=== PATIENT | male | born 1940 | race Caucasian/White ===

== ENCOUNTER 2018-08-09 13:15 | Emergency (ER) | payer OTHER, SELFPAY ==
[2018-08-09 13:21] VITALS: BP 152/79; PULSE 71; RESP 15; TEMP 36.4; O2SAT 97; BMI 29.1
[2018-08-09 13:47] VITALS: BP 140/80; PULSE 62; RESP 19; O2SAT 95
[2018-08-09] MEDS: SODIUM CHLORIDE 0.9% 1,000 ML 150 ML IV (13:52)
[2018-08-09 13:57] LABS: Add Manual Diff / Slide Review NO; Basophils Percent Auto 0.5 % (0-2); Eosinophils Percent Auto 2.8 % (2-4); Hematocrit 51.3 % (41-53); Hemoglobin 17.2 g/dL (13.5-17.5); Lymphocytes Percent Auto 13.5 % (25-40); Mean Corpuscular HGB Conc 33.5 % (30-36); Mean Corpuscular Hemoglobin 29.7 PG (26-34); Mean Corpuscular Volume 88.7 fL (80-100); Neutrophils Absolute Auto 6100 /uL (3000-5900); Neutrophils Percent Auto 73.2 % (50-75); Platelet Count 163 X10^3/uL (150-400); Red Blood Cell Count 5.78 X10^6/uL (4.5-5.9); Red Cell Distribution Width 15.3 % (11.6-14.8); White Blood Cell Count 8.3 X10^3/uL (4.5-11.0)
[2018-08-09 14:03] LABS: Alanine Aminotransferase 33 IU/L (21-72); Albumin 4.4 g/dL (3.5-5.0); Albumin Globulin Ratio 1.5 (1.0-2.8); Alkaline Phosphatase 92 U/L (38-126); Aspartate Aminotransferase 39 IU/L (17-59); BUN Creatinine Ratio 15.8 (6-22); Bilirubin Total 0.7 mg/dL (0.2-1.3); Blood Urea Nitrogen 19 mg/dL (9-20); Calcium 9.7 mg/dL (8.4-10.2); Carbon Dioxide 26 mmol/L (22-32); Chloride 108 mmol/L (98-107); Estimated Glomerular Filt Rate 58.9 mL/min (>60); Globulin 2.9 g/dL (1.7-4.1); Glucose 102 mg/dL (80-110); HEMOLYSIS < 15 (0-50); Lipase 128 U/L (23-300); Sodium 148 mmol/L (137-145); Total Protein 7.3 g/dL (6.3-8.2)
[2018-08-09 14:07] LABS: Prothrombin Time 11.1 SECONDS (10.1-12.7)
[2018-08-09 14:14] LABS: Bacteria Urine Moderate (10-30); Culture Indicated Urine Specimen Cultured; RBC Urine 30-100/HPF (0-5/HPF); WBC Urine 1-5/HPF (0-5/HPF)
[2018-08-09 14:30] VITALS: BP 131/79; PULSE 67; RESP 14; O2SAT 94
--- NOTE | 2018-08-09 14:40 | ED.ABDPAIN ---
HPI - Abdominal Pain General Chief Complaint: Abdominal Pain Stated Complaint: AAA stint 5 years ago, has pain in that area now Time Seen by Provider: 08/09/18 13:40 Source: patient and family Mode of arrival: ambulatory Limitations: no limitations History of Present Illness HPI narrative: This is a 78-year-old male comes to the emergency department with complaint of abdominal pain in the left lower quadrant. Patient states this started about 5:00 a.m. this morning I see some stop point tenderness in the right groin and points to the inguinal area. He states that he took some ibuprofen and that helped although is it starts to wear off and comes back. He states it does sort of seem to be in waves it is not completely constant. He states it does not really seem to be radiating anywhere else. He is not having any testicular pain. He is not having any new back pain although he does have chronic back pain. States that it is his typical back pain. He is not having any flank pain. Patient denies any fevers or chills. Um him and his significant other states that he was sort of flushed earlier when they 1st started his IV. He denies any chest pain or shortness of breath. He has been nauseated but not had any vomiting. He does have a history of AA abdominal aortic aneurysm which was repaired with stent. Patient states that he has also had a history of could be remotely. patient is not having any issues with urination. Related Data Previous Rx's Medication Instructions Recorded tamsulosin [Flomax] 0.4 mg PO DAILY #5 cap 08/09/18 Allergies Allergy/AdvReac Type Severity Reaction Status Date / Time finasteride Allergy Verified 08/09/18 13:21 Review of Systems Review of Systems All systems reviewed & are unremarkable except as noted in HPI and below Constitutional Denies chills, Denies fever(s), Denies lethargy, Denies weakness and Reports other ( flushed) Cardiovascular Denies chest pain, Denies diaphoresis, Denies syncope, Denies irregular heart rhythm, Denies lightheadedness, Denies palpitations, Denies dyspnea, Denies dyspnea on exertion and Denies orthopnea Respiratory Denies cough, Denies dyspnea, Denies dyspnea on exertion and Denies wheezing Gastrointestinal Gastrointestinal: Reports abdominal pain, Reports belching, Denies melena, Denies bloating, Denies change in bowel habits, Denies diarrhea, Reports nausea, Denies vomiting and Denies other ( no masses) Genitourinary Denies hematuria, Denies flank pain, Denies scrotal swelling, Denies testicular pain, Denies urinary frequency, Denies urinary hesitancy, Denies urinary incontinence and Denies urinary urgency Musculoskeletal Reports back pain ( chronic, no new change) Integumentary/Breasts Denies rash Neurologic Denies syncope and Denies weakness Endocrine Denies palpitations Allergic/Immunologic Denies wheezing PFSH Medical History Aortic aneurysm, abdominal (Acute) Surgical History S/P aneurysm repair (Acute) Social History other: Lives in [facility] part-time Smoking Status: Never smoker Exam Narrative Exam Narrative: GENERAL: Alert and oriented x three, well-nourished, well-appearing male in mild distress. HEENT: Head normocephalic, atraumatic, EOMI, pupils reactive, face symmetric, moist mucous membranes NECK: Supple, full range of motion CARDIOVASCULAR: Regular rate and rhythm without murmurs, rubs or gallops. RESPIRATORY: Breath sounds equal bilaterally, no wheezes rales or rhonchi. ABDOMEN: Soft, Tenderness in the left inguinal region. I am unable to palpate any mass or lymphadenopathy. Patient is only mildly tender to palpation. No other abdominal tenderness with palpation in the 4 quadrants. Normoactive bowel sounds all 4 quadrants. No guarding or rebound, rigidity, no mass, No bruit or pulsatile mass. : No CVA tenderness EXTREMITIES: Normal range of motion, no clubbing or edema. Neurovascularly intact. 2+ pulses bilateral lower extremities. NEUROLOGICAL: Cranial nerves II through XII grossly intact. Moving all extremities SKIN: Warm, dry, no petechiae, no rashes or lesions. Initial Vital Signs Initial Vital Signs: Vital Signs Temperature 97.6 F 08/09/18 13:21 Pulse Rate 71 08/09/18 13:21 Respiratory Rate 15 08/09/18 13:21 Blood Pressure 152/79 H 08/09/18 13:21 Pulse Oximetry 97 08/09/18 13:21 Course Orders Ordered: ED Orders 08/09/18 13:30 Complete Blood Count AUTO DIFF Stat Comprehensive Metabolic Panel Stat Lipase Stat Prothrombin Time INR Stat Type and Screen Stat 08/09/18 13:54 Urine Culture Stat Urine Microscopic Stat 08/09/18 14:39 CT angio chest abdomen pelvis Stat Discontinued Medications Sodium Chloride (Normal Saline 0.9%) 1,000 mls @ 150 mls/hr IV CONT LILLI Last Infusion: 08/09/18 17:02 Dose: 0 mls/hr Admin: 08/09/18 13:52 Dose: 150 mls/hr Ibuprofen (Advil) 800 mg PO NOW ONE Stop: 08/09/18 16:44 Tamsulosin HCl (Flomax) 0.4 mg PO NOW ONE Stop: 08/09/18 16:44 Vital Signs - 8 hr 08/09/18 13:21 08/09/18 13:47 08/09/18 14:30 Temperature 97.6 F Pulse Rate 71 62 67 Respiratory Rate 15 19 14 Blood Pressure 152/79 H Blood Pressure [Right Arm] 140/80 131/79 Pulse Oximetry 97 95 94 08/09/18 16:00 08/09/18 17:02 Temperature Pulse Rate 77 73 Respiratory Rate 18 Blood Pressure 153/83 H Blood Pressure [Right Arm] 153/83 H Pulse Oximetry 95 99 MDM - Abdominal Pain Lab Data Attestation: I reviewed the patient's lab results. Result diagrams: 08/09/18 13:30 08/09/18 13:30 Lab Results 08/09/18 08/09/18 08/09/18 Range/Units 13:30 13:30 13:30 WBC 8.3 (4.5-11.0) X10^3/uL RBC 5.78 (4.5-5.9) X10^6/uL Hgb 17.2 (13.5-17.5) g/dL Hct 51.3 (41-53) % MCV 88.7 (80-100) fL MCH 29.7 (26-34) PG MCHC 33.5 (30-36) % RDW 15.3 H (11.6-14.8) % Plt Count 163 (150-400) X10^3/uL Neut % (Auto) 73.2 (50-75) % Lymph % (Auto) 13.5 L (25-40) % [place] % (Auto) 10.0 (3-14) % Eos % (Auto) 2.8 (2-4) % Baso % (Auto) 0.5 (0-2) % Neut # (Auto) 6100 H (0436-2945) /uL PT 11.1 (10.1-12.7) SECONDS INR 1.0 (0.9-1.3) Sodium 148 H (137-145) mmol/L Potassium 4.0 (3.4-5.1) mmol/L Chloride 108 H (98-107) mmol/L Carbon Dioxide 26 (22-32) mmol/L BUN 19 (9-20) mg/dL Creatinine 1.20 (0.66-1.25) mg/dL Estimated GFR 58.9 L (>60) mL/min BUN/Creatinine Ratio 15.8 (6-22) Glucose 102 (80-110) mg/dL Calcium 9.7 (8.4-10.2) mg/dL Total Bilirubin 0.7 (0.2-1.3) mg/dL AST 39 (17-59) IU/L ALT 33 (21-72) IU/L Alkaline Phosphatase 92 (38-126) U/L Total Protein 7.3 (6.3-8.2) g/dL Albumin 4.4 (3.5-5.0) g/dL Globulin 2.9 (1.7-4.1) g/dL Albumin/Globulin Ratio 1.5 (1.0-2.8) Lipase 128 (23-300) U/L Urine RBC (0-5/HPF) Urine WBC (0-5/HPF) Urine Bacteria (None) Ur Culture Indicated? Micro UA Comment Blood Type Antibody Screen 08/09/18 08/09/18 Range/Units 13:30 13:54 WBC (4.5-11.0) X10^3/uL RBC (4.5-5.9) X10^6/uL Hgb (13.5-17.5) g/dL Hct (41-53) % MCV (80-100) fL MCH (26-34) PG MCHC (30-36) % RDW (11.6-14.8) % Plt Count (150-400) X10^3/uL Neut % (Auto) (50-75) % Lymph % (Auto) (25-40) % [place] % (Auto) (3-14) % Eos % (Auto) (2-4) % Baso % (Auto) (0-2) % Neut # (Auto) (7252-7144) /uL PT (10.1-12.7) SECONDS INR (0.9-1.3) Sodium (137-145) mmol/L Potassium (3.4-5.1) mmol/L Chloride (98-107) mmol/L Carbon Dioxide (22-32) mmol/L BUN (9-20) mg/dL Creatinine (0.66-1.25) mg/dL Estimated GFR (>60) mL/min BUN/Creatinine Ratio (6-22) Glucose (80-110) mg/dL Calcium (8.4-10.2) mg/dL Total Bilirubin (0.2-1.3) mg/dL AST (17-59) IU/L ALT (21-72) IU/L Alkaline Phosphatase (38-126) U/L Total Protein (6.3-8.2) g/dL Albumin (3.5-5.0) g/dL Globulin (1.7-4.1) g/dL Albumin/Globulin Ratio (1.0-2.8) Lipase (23-300) U/L Urine RBC 30-100/hpf H (0-5/HPF) Urine WBC 1-5/hpf (0-5/HPF) Urine Bacteria Moderate (10-30) H (None) Ur Culture Indicated? Specimen cultured Micro UA Comment Not Reportable Blood Type B Positive Antibody Screen Negative Point of care testing: Urine Dip Bedside Urine Glucose Negative Bedside Urine Bilirubin - Negative Bedside Urine Ketone - Negative Urine Specific [place] 1.025 Bedside Urine Occult Blood +++ Bedside Urine pH 5.5 Bedside Urine Protein +/- 15 Bedside Urine Urobilinogen - Negative Bedside Urine Nitrite - Negative Bedside Urine Leukocytes - Negative Esterase Imaging Data CTA chest/abd/pelvis: Radiologist's impression: [place] [address] CT Scan Report Signed Patient: Pedro BrownR#: [id number] : 2Acct:[id number] Age/Sex: 78 / MDate of Service: 08/09/18 Loc: ED Accession Number: [id number] Procedure: CT angio chest abdomen pelvis Ordering Provider: Allie Gaspar D.O. PROCEDURE: CT ANGIO CHEST ABDOMEN PELVIS INDICATIONS: left lower abd pain, hx of aaa with stent repair, started to TECHNIQUE: Precontrast 5 mm thick sections acquired from the lung apices to the iliac crests. After the administration of intravenous contrast, 2.5 mm thick sections again acquired from the lung apices to the iliac crests. Maximum intensity projection (MIP) oblique sagittal and coronal reformats were then acquired. For radiation dose reduction, the following was used: automated exposure control. COMPARISON: None. FINDINGS: Image quality: Excellent. AORTA: Infrarenal, aortic aneurysm measuring up to 4.3 x 4.5 cm on image 144, status post placement of [id number] stent grafts. No evidence of periaortic hemorrhage is seen. No definite evidence of endoleak identified. However, for complete evaluation, recommend obtaining prior studies if possible for comparison purposes. CHEST: Lungs and pleura: No acute consolidation. Subsegmental bibasilar dependent atelectasis and/or scarring. No pleural effusions or pneumothorax. Central and peripheral airways are patent and normal in caliber. Mediastinum: Heart size is normal. Coronary artery calcifications are seen No pericardial effusion. No mediastinal or hilar adenopathy by size criteria. Central pulmonary arteries are normal in size. Esophagus is normal in caliber. Large hiatal hernia. Bones and chest wall: No axillary adenopathy by size criteria. No suspicious bony lesions. No vertebral body compression fractures. ABDOMEN: Vasculature: Celiac trunk and mesenteric arteries are patent. Renal arteries are also patent. Solid organs: Liver is normal in size and enhancement. Gallbladder decompressed otherwise unremarkable. Biliary system is non dilated. Pancreas enhances normally. Spleen is normal in size and enhancement. No adrenal nodules. Mild to moderate left hydronephrosis related to a proximal left ureteral calculus seen on image 140 measuring 7 mm. No evidence of right-sided urinary obstruction, or urolithiasis. Simple appearing left renal cyst measuring 6 cm. Peritoneum and bowel: No free fluid or air. Bowel loops are normal in caliber and wall thickness. Normal appendix. Nodes and vessels: No retroperitoneal or mesenteric adenopathy by size criteria. Inferior vena cava is normal in morphology. Miscellaneous: No ventral hernias. PELVIS: Genitourinary: Bladder wall thickness is normal. Prostate enlarged. Miscellaneous: No inguinal hernias or adenopathy. No ventral hernias. Bones: No suspicious bony lesions. No vertebral body compression fractures. IMPRESSION: Mild to moderately obstructive 7 mm proximal left ureteral calculus. Infrarenal abdominal aortic aneurysm, status post stent graft as above. No evidence of periaortic hemorrhage. Large hiatal hernia. The stomach is essentially within the thorax. Coronary artery disease. Additional chronic and incidental findings as above. Normal appendix. Dictated by: Bubba Matias M.D. on 08/09/2018 at 15:38 Approved by: Bubba Matias M.D. on 08/09/2018 at 15:47 MDM Narrative Medical decision making narrative: Patient History of AAA although his symptomatology does not quite fit his repair was more on the left side so CT angio was ordered. I am not able to palpate a hernia or other obvious cause. He had blood on point of care urine and this was sent for microscopy. He has had a history of kidney stones but states this episode feels different Um and his pain is very localized. Patient is deferring any pain medication or nausea medication. Plan for IV fluids, his lab work shows slightly elevated sodium, CBC shows no acute changes. CTA chest/abd/pelvis shows Infrarenal aortic aneurysm measuring 4.3 x 4.5 cm status post placement of aortic bi-iliac stent graft. No evidence of periaortic hemorrhage. No evidence of endoleak. Patient also has a left proximal ureteral calculus mild to moderate hydro and a left renal cyst that is 6 cm. Patient's pain is very much Um in the groin area so I did suspect with some is normal findings on his CT a that he is having aortic leak or change on his aneurysm. Patient's renal function is appropriate his creatinine is not elevated. His pain has been controlled with ibuprofen at home. Discharge Plan Departure Patient Disposition: Home Clinical Impression: Abdominal pain, Kidney stone on left side Discharge Date/Time: 08/09/18 17:03 Interventions: ED Discharge Assessment Last Done: 08/09/18 17:02 Instructions: DI for Kidney Stones Activity Restrictions/Additional Instructions: Follow up with urology in the next 3-5 days if no improvement in symptoms. Your CT shows no acute changes to your aneurysm, it does show a 7mm stone in the left ureter. Take Flomax daily x5 days. You may take ibuprofen up to 800mg every 8 hours or 600mg every 6 hours. You may also take tylenol with this 1000mg every 8 hours as needed. Strain urine for stone. Return to the emergency department for fevers, persistent vomiting, rapidly worsening abdominal or flank pain, passing, new chest pain or shortness breath, or other new or concerning symptoms. Prescriptions: New tamsulosin [Flomax] 0.4 mg capsule 0.4 mg PO DAILY Qty: 5 RF: 0 Referrals: Logan Mir MD [Non-Staff] -
[2018-08-09 16:00] VITALS: BP 153/83; PULSE 77; RESP 18; O2SAT 95
[2018-08-09 17:02] VITALS: BP 153/83; PULSE 73; O2SAT 99
== END 2018-08-09 17:03 | disposition home or self-care (01) ==
PROVIDERS: Emergency Provider Emergency Medicine
DX: R10.9 Unspecified abdominal pain (principal); N20.0 Calculus of kidney
CPT/HCPCS: 36415; 36591; 71275; 74174; 80053; 81003; 81015; 83690; 85025; 85610; 86850; 86900; 86901; 87086; 87147; 96360; 96361; 99283; 99285